=== PATIENT | female | born 2000 | race Two or more races ===

== ENCOUNTER 2025-10-13 23:07 | Emergency (ER) | payer SELFPAY ==
[2025-10-13 23:09] VITALS: BMI 20.8
[2025-10-13 23:57] VITALS: BP 131/79; PULSE 75; RESP 18; TEMP 36.8; O2SAT 96
--- NOTE | 2025-10-14 00:20 | EDNOTE_ITS ---
ED Dental RME/HPI General Chief complaint: Dental/Oral/Throat Stated complaint: TOOTH PAIN Time Seen by Provider: 10/14/25 00:04 Arrival date/time: 10/13/25 23:07 24F with no significant PMH presents to ED with several months of intermittent R lower molar pain. Patient does not see dentist, but will now. Limitations: no limitations Related Data Previous Rx's ?Medication ?Instructions ?Recorded amoxicillin 875 mg-potassium 1 tab PO BID 7 days #14 t abs 10/14/25 clavulanate 125 mg tablet Allergies Allergy/AdvReac Type Severity Reaction Status Date / Time No Known Allergies Allergy Verified 10/13/25 23:08 Review of Systems Review of Systems Systems Reviewed: All systems reviewed, normal except as documented ENT Ears, Nose, Mouth, and Throat: Reports as per HPI and Reports dental pain Past Medical History Social History SMOKING STATUS: Never smoker ED Exam General Limitations: Present no limitations General appearance: Present alert and in no apparent distress Head Head exam: Present atraumatic ENT ENT exam: Present mucous membranes moist Expanded ENT Exam Teeth exam: Present dental caries and gingival swelling Neck Neck exam: Present normal inspection, full ROM and trachea midline Chest Chest inspection: Present normal inspection and symmetric chest wall rise Neurological Exam Neurological exam: Present alert and oriented X3 Psychiatric Psychiatric exam: Present normal affect and normal mood Skin Skin exam: Present warm, dry, intact and normal color Course Quality Measures none Orders Category Date Time Status Amoxicillin/Pot Clav 875 [Augmentin 875] Med 10/14/25 00:06 Discontinued 1 tab PO X1 ONE Naproxen [Naprosyn] Med 10/14/25 00:06 Discontinued 500 mg PO X1 ONE Vital Signs Vital signs: Vital Signs Temperature 98.3 F 10/13/25 23:57 Pulse Rate 75 10/13/25 23:57 Respiratory Rate 18 10/13/25 23:57 Blood Pressure 131/79 H 10/13/25 23:57 Pulse Oximetry (%) 96 10/13/25 23:57 Oxygen Delivery Method Room Air 10/13/25 23:57 O2 at 96% on RA and WNLs Dental / Oral MDM Narrative MDM Narrative:: 24F with no significant PMH presents to ED with several months of intermittent R lower molar pain. Patient does not see dentist, but will now. Physical exam reveals multiple dental caries and gingival swelling. Patient is afebrile, calm, and alert. Meds and dianetic counselor given. Patient data External records reviewed:: None Clinical information provided by:: patient Social determinants that could affect healthcare access:: none Patient has the following chronic illnesses:: none How is presenting disease/condition affected by chronic disease/condition?: no chronic disease Evaluation data The following diagnostics were reviewed and interpreted by me:: other (specify) (none) Lab and/or radiology exams considered but not ordered:: not ordered Interpretation Summary: n/a Medications / Prescriptions Medications or Prescriptions considered but not ordered:: ordered Medication administrations:: Medication Administration History Discontinued Medications Amoxicillin/Clavulanate Potassium (Amoxicillin/Pot Clav 875 Tablet) 1 tab PO X1 ONE Stop: 10/14/25 00:07 Naproxen (Naproxen 250 Mg Tablet) 500 mg PO X1 ONE Stop: 10/14/25 00:07 above Consultations Consultation(s) initiated? (list below): No Diagnosis Dental Differential Diagnosis: gingival abscess, dental caries, toothache, dental abscess, fracture of tooth, aphthous ulcer and other (dental infection) Most likely diagnosis given after review of the tests above:: dental infection Admission Indicated Admission indicated?: not indicated Admission Request Was there a request for admission?: No Disposition Plan Disposition Plan: Discharge Discharge Attestation Discharge Attestation: The patient and all family members were given an opportunity to ask questions and understood the discharge instructions. Discharge instructions specifically effects, indications for sooner follow up or return to the emergency department, and the expected course of current diagnosis. Patient condition: Stable Discharge Plan Plan Patient Disposition: HOME (Self Care) Discharge Disposition comment: Stable Prescriptions/Referrals Prescriptions/Med Rec: New amoxicillin-pot clavulanate 875-125 mg tablet 1 tab PO BID 7 Days Qty: 14 0RF Problem List Clinical Impression: Dental infection Patient/Caregiver Discharge Instructions Education Materials: ED Dental Abscess Additional Instructions: Please follow-up with PCP within 24-48 hours and return immediately if symptoms worsen. See dentist soon. NSAIDs like ibuprofen tend to work better for this type of pain. Print Language: Iraqi Stand Alone Forms: Patient Portal Info Letter PA/CONVEYOR LOADER Supervising Physician VY/ALVINO Supervising Physician: Dr. Fuentes
[2025-10-14] MEDS: NAPROXEN 250 MG TABLET 500 MG PO (00:26)
[2025-10-14] MEDS: AMOXICILLIN/POT CLAV 875 TABLET 1 TAB PO (00:26)
[2025-10-14 00:29] VITALS: BP 126/78; PULSE 88; RESP 19; TEMP 36.3; O2SAT 98
== END 2025-10-14 00:30 | disposition home or self-care (01) ==
LOC: SERX 10-14 04:34
PROVIDERS: Emergency Provider Emergency Medicine
DX: K04.7 Periapical abscess without sinus (principal)
CPT/HCPCS: 99281; A9270